=== PATIENT | female | born 1960 | race Caucasian/White ===

== ENCOUNTER 2017-03-31 23:53 | Inpatient (IN) | payer OTHER ==
[~2017-03-31] VITALS: Ht 165.1 cm; Wt 81.9 kg
[~2017-03-31 23:53] MED LIST: BENTYL10 MG PO; CYCLOBENZAPRINE10 MG PO; CYMBALTA60 MG PO; ENDOCET 5-3251 EACH PO; KADIAN20 MG PO; KLONOPIN1 MG PO; LISINOPRIL20 MG PO; LOPID600 MG PO; METAXALONE800 MG PO; NICOTINE PATCH1 EAC2 TD; PERCOCET 5/31 TABLET PO; SIMVASTATIN20 MG PO; TRAMADOL HCL50 MG PO; TRAZODONE HCL100 MG PO; TRAZODONE HCL50 MG PO; ZESTORETIC 10-1 EAC1 PO; ZESTRIL,PRINIV2.5 MG PO
[2017-04-01 00:28] LABS: MCH 27.8 PG (29.0-34.0); MCHC 33.2 G/DL (30.0-36.0); MCV 83.7 FL (83-99); MEAN PLAT.VOLUME 9.6 uM^3 (9.5-12.4); PLATELET COUNT 412 K/uL (156-360); RBC DIS.WIDTH-CV 13.5 % (11.8-14.6); RBC DIS.WIDTH-SD 41.9 % (39-53); RED BLOOD COUNT 4.06 M/uL (3.80-5.20); WHITE BLOOD COUNT 10.3 K/uL (4.1-10.2)
[2017-04-01 00:36] LABS: CHLORIDE 106 mEq/L (99-109); POTASSIUM 3.9 mEq/L (3.7-5.4); SODIUM 140 mEq/L (136-147)
[2017-04-01 00:36] LABS: PROTHROMBIN TIME 10.6 SEC (10.2-12.9)
[2017-04-01 00:38] LABS: GLUCOSE 116 mg/dL (70-99)
[2017-04-01 00:39] LABS: ANION GAP 13 MEQ/L (2-14)
[2017-04-01 00:39] LABS: PTT 34.5 SEC (25-37)
[2017-04-01 00:42] LABS: GFR ESTIMATE (CALCULATED) > 59 mL/min/
[2017-04-01 00:43] LABS: UREA NITROGEN (BUN) 20 mg/dL (9-23)
[2017-04-01 00:51] LABS: TROP-I INTERPRETATION NEGATIVE; TROPONIN-I < 0.01 ng/mL (0.0-0.30)
[2017-04-01] MEDS ORDERED: TRAZODONE HCL50 MG PO (01:30)
[2017-04-01] MEDS ORDERED: OXYCODONE HCL5 MG PO (01:30)
[2017-04-01] MEDS ORDERED: VENTOLIN HFA18 GM IH (01:31)
[2017-04-01] MEDS ORDERED: BUSPAR10 MG PO (01:31)
[2017-04-01] MEDS ORDERED: TIZANIDINE HCL4 MG PO (01:31)
[2017-04-01 03:09] VITALS: BP 122/70
[2017-04-01 08:48] VITALS: BP 121/78
[2017-04-01 10:33] LABS: HDL CHOLESTEROL 42 MG/DL (Desirable>=50); LDL CHOLESTEROL 67 mg/dL (Desirable<100); NON-HDL CHOLESTEROL 92 mg/dL (Desirable<160); TOTAL CHOLESTEROL 134 mg/dL (Desirable<200); TRIGLYCERIDES 125 MG/DL (Normal: <150)
[2017-04-01 10:36] LABS: Estimated Average Glucose 126 mg/dL (70-123)
[2017-04-01 15:32] VITALS: BP 150/89
[2017-04-01 23:45] VITALS: BP 115/67
[2017-04-02 08:19] VITALS: BP 135/69
[2017-04-02] MEDS ORDERED: ASPIR-LOW81 MG PO (12:56)
[2017-04-02] MEDS ORDERED: NICOTINE PATCH1 EAC2 TD (12:56)
[2017-04-02] MEDS ORDERED: CLOPIDOGREL75 MG PO (12:56)
== END 2017-04-02 13:58 | disposition home or self-care (01) | DRG 69 ==
LOC: EME 23:53 → EDOF 04-01 01:25 → ENRESERV 04-01 01:33 → 5SOUTH 04-01 02:34
PROVIDERS: Emergency Medicine; Family Medicine
DX: G45.9 Transient cerebral ischemic attack, unspecified (principal); F33.9 Major depressive disorder, recurrent, unspecified; E78.5 Hyperlipidemia, unspecified; F17.210 Nicotine dependence, cigarettes, uncomplicated; F41.9 Anxiety disorder, unspecified; R29.700 NIHSS score 0; G89.29 Other chronic pain; I10 Essential (primary) hypertension; J45.909 Unspecified asthma, uncomplicated; M41.9 Scoliosis, unspecified; H53.8 Other visual disturbances
CPT/HCPCS: 70450; 70551; 71020; 80048; 80061; 83036; 84484; 85027; 85610; 85730; 93005; 93880; 94760; 99202; 99281; 99284; J1650

== ENCOUNTER 2017-07-12 14:45 | Emergency (ER) | payer OTHER ==
[~2017-07-12] VITALS: Ht 165.1 cm; Wt 82.5 kg
[~2017-07-12 14:45] MED LIST changes: +ASPIR-LOW81 MG PO; +BUSPAR10 MG PO; +CLOPIDOGREL75 MG PO; +OXYCODONE HCL5 MG PO; +TIZANIDINE HCL4 MG PO; +VENTOLIN HFA18 GM IH
[2017-07-12 15:37] LABS: HEMATOCRIT 34.5 % (36.0-46.0); HEMOGLOBIN 11.5 G/DL (11.9-15.5); MCH 27.9 PG (29.0-34.0); MCHC 33.3 G/DL (30.0-36.0); MCV 83.7 FL (83-99); PLATELET COUNT 306 K/uL (156-360); RBC DIS.WIDTH-CV 13.6 % (11.8-14.6); RED BLOOD COUNT 4.12 M/uL (3.80-5.20)
[2017-07-12 15:45] LABS: INTER. NORMALIZED RATIO 0.9
[2017-07-12 15:47] LABS: CHLORIDE 103 mEq/L (99-109); POTASSIUM 3.8 mEq/L (3.7-5.4); SODIUM 138 mEq/L (136-147)
[2017-07-12 15:48] LABS: PTT 30.8 SEC (25-37)
[2017-07-12 15:49] LABS: GLUCOSE 101 mg/dL (70-99)
[2017-07-12 15:53] LABS: CREATININE 0.7 mg/dL (0.6-1.3); GFR ESTIMATE (CALCULATED) > 59 mL/min/
[2017-07-12 15:54] LABS: UREA NITROGEN (BUN) 16 mg/dL (9-23)
[2017-07-12 18:20] VITALS: BP 135/78
== END 2017-07-12 18:22 | disposition home or self-care (01) ==
LOC: EME 14:45
PROVIDERS: Emergency Medicine
DX: R53.1 Weakness (principal); J06.9 Acute upper respiratory infection, unspecified; Z86.73 Personal history of transient ischemic attack (TIA), and cerebral infarction without residual deficits; E78.5 Hyperlipidemia, unspecified; I10 Essential (primary) hypertension; F17.200 Nicotine dependence, unspecified, uncomplicated; J45.909 Unspecified asthma, uncomplicated; Z79.01 Long term (current) use of anticoagulants; F41.9 Anxiety disorder, unspecified; F32.9 Major depressive disorder, single episode, unspecified; Z88.5 Allergy status to narcotic agent
CPT/HCPCS: 70450; 71020; 80048; 85027; 85610; 85730; 93005; 99281; 99285; J7030